=== PATIENT | female | born 1940 | race Caucasian/White ===

== ENCOUNTER 2017-03-02 09:09 | Outpatient (CLI) | payer OTHER, MEDICARE ==
[2017-03-02 09:39] LABS: BASOPHILS # (AUTO) 0.1 K/uL (0.0-0.2); BASOPHILS % (AUTO) 1.1 % (0.0-2.0); EOSINOPHILS # (AUTO) 0.3 K/uL (0.0-0.4); EOSINOPHILS % (AUTO) 5.8 % (0.0-4.0); HEMOGLOBIN 12.5 g/dL (12.0-16.0); LYMPHOCYTES # (AUTO) 0.9 K/uL (1.0-5.5); MEAN CORPUSCULAR HEMOGLOBIN 32 pg (27-31); MEAN CORPUSCULAR HGB CONC 34 % (32-36); MEAN CORPUSCULAR VOLUME 94 fL (79.0-98.0); MONOCYTES # (AUTO) 0.5 K/uL (0.0-1.0); MONOCYTES % (AUTO) 8.9 % (1.7-9.3); NEUTROPHILS % (AUTO) 69.2 % (40.0-70.0); PLATELET COUNT (AUTO) 316 K/uL (130-430); RED BLOOD CELL COUNT(AUTO) 3.94 MIL/uL (4.2-6.2); RED CELL DISTRIBUTION WIDTH 12.6 % (9.0-15.0); WHITE BLOOD COUNT (AUTO) 5.8 K/uL (4.8-10.8)
[2017-03-02 10:05] LABS: ALANINE AMINOTRANSFERASE 30 U/L (12-78); ALBUMIN 3.7 g/dL (3.4-4.8); ANION GAP 8 (5-15); ASPARTATE AMINOTRANSFERASE 17 U/L (10-37); CALCIUM 8.7 mg/dL (8.4-11.0); CHLORIDE 98 mmol/L (98-107); CHOLESTEROL 188 mg/dL (<200); CREATININE 1.01 mg/dL (0.55-1.30); GLUCOSE 129 mg/dL (70-99); HDL CHOLESTEROL 106 mg/dL (>55); LDL CHOLESTEROL 71 mg/dL (<100); POTASSIUM 3.9 mmol/L (3.5-5.1); SODIUM SERUM 134 mmol/L (136-145); TOTAL BILIRUBIN 0.7 mg/dL (0.0-1.0); TRIGLYCERIDES 91 mg/dL (30-150); UREA NITROGEN, BLOOD 13 mg/dL (8-21)
== END 2017-03-02 19:26 | disposition home or self-care (01) ==
LOC: SLB 09:09
PROVIDERS: ATTEND Internal Medicine Interventional Cardiology
DX: J44.9 Chronic obstructive pulmonary disease, unspecified (principal); R79.89 Other specified abnormal findings of blood chemistry
CPT/HCPCS: 36415; 80053; 80061; 85025

== ENCOUNTER → 2019-01-03 | Outpatient (CLI) | payer OTHER, MEDICARE ==
[2019-01-03 10:16] LABS: BASOPHILS # (AUTO) 0.1 K/uL (0.0-0.2); BASOPHILS % (AUTO) 0.7 % (0.0-2.0); EOSINOPHILS # (AUTO) 0.5 K/uL (0.0-0.4); EOSINOPHILS % (AUTO) 7.1 % (0.0-4.0); HEMATOCRIT 33.2 % (36-48); HEMOGLOBIN 11.1 g/dL (12.0-16.0); LYMPHOCYTES # (AUTO) 0.8 K/uL (1.0-5.5); LYMPHOCYTES % (AUTO) 10.2 % (20.5-51.5); MEAN CORPUSCULAR HEMOGLOBIN 31 pg (27-31); MEAN CORPUSCULAR HGB CONC 34 % (32-36); MEAN CORPUSCULAR VOLUME 93 fL (79.0-98.0); MONOCYTES # (AUTO) 0.7 K/uL (0.0-1.0); MONOCYTES % (AUTO) 9.8 % (1.7-9.3); NEUTROPHILS # (AUTO) 5.5 K/uL (1.8-7.7); NEUTROPHILS % (AUTO) 72.2 % (40.0-70.0); PLATELET COUNT (AUTO) 294 K/uL (130-430); RED BLOOD CELL COUNT(AUTO) 3.57 MIL/uL (4.2-6.2); RED CELL DISTRIBUTION WIDTH 13.5 % (9.0-15.0); WHITE BLOOD COUNT (AUTO) 7.6 K/uL (4.8-10.8)
[2019-01-03 10:33] LABS: ALANINE AMINOTRANSFERASE 14 U/L (12-78); ALBUMIN 3.3 g/dL (3.4-4.8); ANION GAP 1 (5-15); ASPARTATE AMINOTRANSFERASE 13 U/L (10-37); CALCIUM 9.9 mg/dL (8.4-11.0); CHLORIDE 97 mmol/L (98-107); CHOLESTEROL 201 mg/dL (<200); CREATININE 0.92 mg/dL (0.55-1.30); GLUCOSE 129 mg/dL (70-99); HDL CHOLESTEROL 91 mg/dL (>55); LDL CHOLESTEROL 86 mg/dL (<100); POTASSIUM 4.2 mmol/L (3.5-5.1); SODIUM SERUM 133 mmol/L (136-145); TOTAL BILIRUBIN 0.7 mg/dL (0.0-1.0); TRIGLYCERIDES 96 mg/dL (30-150); UREA NITROGEN, BLOOD 11 mg/dL (8-21)
== END | disposition home or self-care (01) ==
LOC: SLB 09:36
PROVIDERS: ATTEND Internal Medicine Interventional Cardiology
DX: J45.909 Unspecified asthma, uncomplicated (principal); I25.10 Atherosclerotic heart disease of native coronary artery without angina pectoris; I11.9 Hypertensive heart disease without heart failure; I70.0 Atherosclerosis of aorta
CPT/HCPCS: 36415; 71046-TC; 80053; 80061; 85025

== ENCOUNTER 2019-05-16 09:08 | Outpatient (CLI) | payer OTHER, MEDICARE ==
[2019-05-16 10:41] LABS: BILIRUBIN,URINE NEGATIVE (NEGATIVE); BLOOD, URINE NEGATIVE (NEGATIVE); CLARITY/URINE SL CLOUDY (CLEAR); COLOR,URINE YELLOW (YELLOW); GLUCOSE,URINE NEGATIVE (NEGATIVE); KETONES,URINE NEGATIVE (NEGATIVE); LEUKOCYTE ESTERASE ,URINE 2+ (NEGATIVE); NITRITE, URINE POSITIVE (NEGATIVE); PROTEIN URINE NEGATIVE (NEGATIVE); UROBILINOGEN,URINE 0.2 (0.2-1.0)
[2019-05-16 10:48] LABS: BACTERIA,URINE MODERATE /HPF (None Seen); RBC,URINE 0-3 /HPF (0-3); WBC,URINE 50-80 /HPF (0-3)
[2019-05-16 10:52] LABS: CALCIUM 8.8 mg/dL (8.4-11.0); CHLORIDE 100 mmol/L (98-107); CREATININE 0.87 mg/dL (0.55-1.30); GLUCOSE 129 mg/dL (70-99); POTASSIUM 3.8 mmol/L (3.5-5.1); SODIUM SERUM 133 mmol/L (136-145); UREA NITROGEN, BLOOD 17 mg/dL (8-21)
[2019-05-16 10:53] LABS: ANION GAP < 3 (5-15)
== END 2019-05-16 19:32 | disposition home or self-care (01) ==
LOC: SUS 09:08
PROVIDERS: ATTEND Specialist
DX: I10 Essential (primary) hypertension (principal); R35.8 Other polyuria; M54.5 Low back pain
CPT/HCPCS: 36415; 76770; 80048; 81000-TC; 87086; 87186-TC

== ENCOUNTER 2022-02-04 09:22 | Inpatient (IN) | payer OTHER, MEDICARE ==
[~2022-02-04] VITALS: Ht 147.3 cm; Wt 61.2 kg
[2022-02-04 09:27] VITALS: BP_SYST 197
[2022-02-04] MEDS ORDERED: KETOROLAC TROMETHAMINE 30 MG VIAL IM ONE (09:45)
[2022-02-04] MEDS ORDERED: HYDROcodone/ACETAMIN 5-325 MG TAB (NORCO/ VICODIN) PO ONE (09:45)
[2022-02-04 09:55] LABS: BASOPHILS # (AUTO) 0.1 K/uL (0.0-0.2); BASOPHILS % (AUTO) 0.7 % (0.0-2.0); HEMATOCRIT 37.9 % (36-48); LYMPHOCYTES # (AUTO) 0.5 K/uL (1.0-5.5); LYMPHOCYTES % (AUTO) 4.5 % (20.5-51.5); MEAN CORPUSCULAR VOLUME 87 fL (79.0-98.0); MONOCYTES # (AUTO) 0.9 K/uL (0.0-1.0); MONOCYTES % (AUTO) 7.8 % (1.7-9.3); NEUTROPHILS # (AUTO) 10.2 K/uL (1.8-7.7); PLATELET COUNT (AUTO) 268 K/uL (130-430); RED BLOOD CELL COUNT(AUTO) 4.37 MIL/uL (4.2-6.2); RED CELL DISTRIBUTION WIDTH 15.8 % (9.0-15.0); WHITE BLOOD COUNT (AUTO) 11.7 K/uL (4.8-10.8)
[2022-02-04 10:06] LABS: ANION GAP 9 (5-15); CHLORIDE 99 mmol/L (98-107); GLUCOSE 121 mg/dL (70-99); POTASSIUM 3.4 mmol/L (3.5-5.1); UREA NITROGEN, BLOOD 21 mg/dL (8-21)
[2022-02-04 10:14] LABS: ALANINE AMINOTRANSFERASE 9 U/L (12-78); ASPARTATE AMINOTRANSFERASE 22 U/L (10-37); C-REACTIVE PROTEIN QUANT 10.1 mg/dL (0-0.5); TOTAL BILIRUBIN 1.5 mg/dL (0.0-1.0)
[2022-02-04 10:20] LABS: INR 1.1 (0.8-1.2)
[2022-02-04 10:42] LABS: ERYTHROCYTE SEDIMENTATION RATE 16 MM/HR (0-20)
[2022-02-04] MEDS ORDERED: MORPHINE 4 MG INJ. 4 MG/ML VIAL IM ONE (10:45)
[2022-02-04 14:12] LABS: BILIRUBIN,URINE 2+ (NEGATIVE); BLOOD, URINE NEGATIVE (NEGATIVE); CLARITY/URINE CLEAR (CLEAR); GLUCOSE,URINE NEGATIVE (NEGATIVE); KETONES,URINE 2+ (NEGATIVE); LEUKOCYTE ESTERASE ,URINE NEGATIVE (NEGATIVE); NITRITE, URINE NEGATIVE (NEGATIVE); PROTEIN URINE 1+ (NEGATIVE)
[2022-02-04 14:15] LABS: COLOR,URINE YELLOW (YELLOW)
[2022-02-04 14:21] LABS: BACTERIA,URINE FEW /HPF (None Seen); MUCUS,URINE 1+ /LPF (None Seen); RBC,URINE 0-3 /HPF (0-3); WBC,URINE 0-3 /HPF (0-3)
[2022-02-04] MEDS ORDERED: ACETAMINOPHEN 325 MG TABLET PO PRN (14:45)
[2022-02-04] MEDS ORDERED: NALOXONE HCL 0.4 MG/ML AMP (NARCAN) IVP PRN (14:45)
[2022-02-04] MEDS ORDERED: ONDANSETRON HCL 4 MG/2 ML VIAL IVP PRN (14:45)
[2022-02-04] MEDS ORDERED: POTASSIUM CHLORIDE 20 MEQ TAB.PRT.SR PO ONE (14:45)
[2022-02-04 16:00] VITALS: BP_SYST 132
[2022-02-04] MEDS: MORPHINE 4 MG INJ. 4 MG/ML VIAL IVP PRN (17:42)
[2022-02-04 20:00] VITALS: BP_SYST 112
[2022-02-05] VITALS (9 sets, daily range): BP systolic 87–124
[2022-02-05] MEDS: POTASSIUM CHLORIDE 20 MEQ TAB.PRT.SR PO SCH (09:05)
[2022-02-05] MEDS: MORPHINE 4 MG INJ. 4 MG/ML VIAL IVP PRN ×3 (09:05→20:42)
[2022-02-05] MEDS ORDERED: CHOLECALCIFEROL (VITAMIN D3) 2,000 UNIT TABLET PO ONE (17:30)
[2022-02-05] MEDS: CALCIUM 500 MG/TAB PO SCH (20:40)
[2022-02-05] MEDS: MAGNESIUM OXIDE 400 MG TABLET PO SCH (20:41)
[2022-02-06 00:24] VITALS: BP_SYST 112
[2022-02-06 01:45] VITALS: BP_SYST 102; BP_SYST 108
[2022-02-06 07:03] LABS: ALANINE AMINOTRANSFERASE 36 U/L (12-78); ALBUMIN 2.6 g/dL (3.4-4.8); ANION GAP 6 (5-15); ASPARTATE AMINOTRANSFERASE 60 U/L (10-37); CALCIUM 8.7 mg/dL (8.4-11.0); CHLORIDE 98 mmol/L (98-107); GLUCOSE 156 mg/dL (70-99); POTASSIUM 4.1 mmol/L (3.5-5.1); TOTAL BILIRUBIN 0.9 mg/dL (0.0-1.0); UREA NITROGEN, BLOOD 47 mg/dL (8-21)
[2022-02-06 07:08] LABS: BASOPHILS % (AUTO) 0.4 % (0.0-2.0); EOSINOPHILS % (AUTO) 0.1 % (0.0-4.0); HEMATOCRIT 37.2 % (36-48); LYMPHOCYTES # (AUTO) 0.9 K/uL (1.0-5.5); MEAN CORPUSCULAR HEMOGLOBIN 29 pg (27-31); MEAN CORPUSCULAR HGB CONC 32 % (32-36); MEAN CORPUSCULAR VOLUME 89 fL (79.0-98.0); MONOCYTES # (AUTO) 1.3 K/uL (0.0-1.0); MONOCYTES % (AUTO) 10.6 % (1.7-9.3); NEUTROPHILS % (AUTO) 81.9 % (40.0-70.0); PLATELET COUNT (AUTO) 304 K/uL (130-430); RED BLOOD CELL COUNT(AUTO) 4.18 MIL/uL (4.2-6.2); RED CELL DISTRIBUTION WIDTH 16.1 % (9.0-15.0); WHITE BLOOD COUNT (AUTO) 12.2 K/uL (4.8-10.8)
[2022-02-06 08:00] VITALS: BP_SYST 116
[2022-02-06] MEDS: CALCIUM 500 MG/TAB PO SCH ×2 (08:22→20:25)
[2022-02-06] MEDS: MAGNESIUM OXIDE 400 MG TABLET PO SCH ×2 (08:23→20:25)
[2022-02-06] MEDS: POTASSIUM CHLORIDE 20 MEQ TAB.PRT.SR PO SCH (08:23)
[2022-02-06] MEDS: MORPHINE 2 MG/ML INJ. SYRINGE IVP PRN (08:28)
[2022-02-06] MEDS: ALENDRONATE SODIUM 10 MG TABLET PO SCH (08:29)
[2022-02-06] MEDS: CHOLECALCIFEROL (VITAMIN D3) 2,000 UNIT TABLET PO SCH (08:29)
[2022-02-06 12:00] VITALS: BP_SYST 107
[2022-02-06] MEDS ORDERED: MAGN400T10 PO (14:20)
[2022-02-06] MEDS ORDERED: VITD2000 PO (14:20)
[2022-02-06] MEDS ORDERED: OSC500 PO (14:20)
[2022-02-06] MEDS ORDERED: ACET325T PO (14:20)
[2022-02-06] MEDS ORDERED: ALEN10TA21 PO (14:20)
[2022-02-06 18:43] VITALS: BP_SYST 113
[2022-02-06 20:00] VITALS: BP_SYST 136
[2022-02-07 00:27] VITALS: BP_SYST 140
[2022-02-07] MEDS: ALENDRONATE SODIUM 10 MG TABLET PO SCH (04:28)
[2022-02-07 08:00] VITALS: BP_SYST 112
[2022-02-07] MEDS: CHOLECALCIFEROL (VITAMIN D3) 2,000 UNIT TABLET PO SCH (09:39)
[2022-02-07] MEDS: CALCIUM 500 MG/TAB PO SCH (09:39)
[2022-02-07] MEDS: MAGNESIUM OXIDE 400 MG TABLET PO SCH (09:39)
[2022-02-07] MEDS: MORPHINE 2 MG/ML INJ. SYRINGE IVP PRN (09:41)
[2022-02-07 11:00] VITALS: BP_SYST 112
[2022-02-09] MEDS ORDERED: RISEDRONATE SODIUM 35 MG TABLET PO SCH (06:00)
== END 2022-02-07 11:30 | DRG 552 ==
LOC: SED 09:22 → SMU 13:21
PROVIDERS: ADMIT Internal Medicine; ATTEND Internal Medicine
DX: S22.089A Unspecified fracture of T11-T12 vertebra, initial encounter for closed fracture (principal); S32.049A Unspecified fracture of fourth lumbar vertebra, initial encounter for closed fracture; J96.10 Chronic respiratory failure, unspecified whether with hypoxia or hypercapnia; E44.0 Moderate protein-calorie malnutrition; E87.6 Hypokalemia; M81.0 Age-related osteoporosis without current pathological fracture; Z20.822 Contact with and (suspected) exposure to COVID-19; I10 Essential (primary) hypertension; J44.9 Chronic obstructive pulmonary disease, unspecified; X58.XXXA Exposure to other specified factors, initial encounter; Y93.89 Activity, other specified; Y92.89 Other specified places as the place of occurrence of the external cause; Y99.8 Other external cause status; Z68.28 Body mass index [BMI] 28.0-28.9, adult
CPT/HCPCS: 36415; 71045; 72131; 72148; 76376; 80053; 81000; 85025; 85610-TC; 85651-TC; 85730-TC; 86140; 93005; 96372; 99285; J1885; J2270